=== PATIENT | female | born 1940 | race Caucasian/White ===

== ENCOUNTER → 2017-03-21 | Outpatient (CLI) | payer MEDICARE ==
[~2017-03-21] MED LIST: ACYCLOVIR PO; ALEVE220 M1 PO; ASPIRIN81 M1 PO; AUGMENTIN PO; BACLOFEN10 MG PO; BACLOFEN20 M1; BACTRIM DS TABL1 TA2 PO; CALCIUM 600 W/D1 TA1 PO; CALTRATE 600+D1 EACH PO; CIPRO PO; DESYREL50 M1 PO; IBUPROFEN400 MG PO; KEFLEX PO; LORTAB 5/500 TA1 TA1 PO; MACULAR VITAMI0.5 MG PO; ROBITUSSIN ALL118 ML PO; SLEEPING PILL; TRAZODONE PO; ULTRAM PO; VERAMYST10 GM NS; [UNRECOGNIZED DRUG - REMARK]
--- NOTE | ~2017-03-21 | CR63 ---
[facility] A [facility] RADIOLOGY TEXT RESULTS PATIENT: CAROLINA BRODERICK [facility] #: [id number] AGE: [address]: Santo Chavez MD SEX: F ORDER DR: [id number] [place] [address] [id number] O MR#: [id number] Acc #: [id number] NAME: CAROLINA BRODERICK : 1940 SEX: F STUDY DATE/TIME: 03/21/2017 14:06 UNIT: [facility] ROOM: STUDY DESCRIPTION: CR Chest 2 View Attending Physician: Santo Chavez M.D. Referring Physician: Santo Chavez M.D. Ordering Physician: Santo Chavez M.D. Primary Care Physician: Kathrin Bashir A.P.R.N. MEDICAL IMAGING REPORT This report is preliminary unless electronic signature is present. EXAM PA and lateral chest DATE 03/21/17 COMPARISON 08/20/2012 HISTORY SUPPLIED Abnormal weight loss, 20 pounds in 1 year, current smoker FINDINGS PA and lateral views of the chest are obtained and compared to a prior portable film of 08/20/2012 and a PA and lateral chest of 06/16/2009. FINDINGS Cardiac size in the patient remains normal. The pulmonary vascular markings are normal. The patient has advanced emphysematous lung disease. No obvious pulmonary nodules or masses are identified. There is a fat pad present along the right heart border which although not well seen on the prior portable film is seen well on the patient's study of 2008. CONCLUSION COPD. No acute process identified. Dictated by... Paulino Mendoza M.D. [facility] A [facility] RADIOLOGY TEXT RESULTS PATIENT: CAROLINA BRODERICK LOCATION: [facility] : 42 UNIT #: [id number] AGE: [address]: Santo Chavez MD SEX: F ORDER DR: THIS IS AN ELECTRONICALLY VERIFIED REPORT Paulino Mendoza M.D. at 03/22/2017 2:58 PM HUNTER/rajesh TD: 03/21/2017 22:50 JOB #: [id number] MEDICAL IMAGING REPORT Page 1 of 1
== END | disposition home or self-care (01) ==
LOC: SRAD 13:55
DX: R63.4 Abnormal weight loss (principal); J44.9 Chronic obstructive pulmonary disease, unspecified; F17.200 Nicotine dependence, unspecified, uncomplicated
CPT/HCPCS: 71020

== ENCOUNTER → 2017-05-02 | Day surgery (SDC) | payer MEDICARE ==
--- NOTE | ~2017-05-02 | OR ---
Unit #: [id number] #: [id number] Patient: CAROLINA BRODERICK [id number] [address] [address] [id number] O MR#: [id number] NAME: CAROLINA BRODERICK ROOM: Date of Procedure: 05/02/2017 Admission Date: 05/02/2017 Surgeon: Guanaco Kumar M.D. : 1940 Attending Physician: Guanaco Kumar M.D. Referring Physician: Guanaco Kumar M.D. Primary Care Physician: Kathrin Bashir A.P.R.N. OPERATIVE REPORT PROCEDURE PERFORMED Colonoscopy with snare polypectomy and hemoclip application on polypectomy site. INDICATIONS FOR PROCEDURE A 77-year-old female, Hemoccult positive stool, undergoing emergency colonoscopy. MEDICATIONS Monitored anesthesia. POSTOPERATIVE FINDINGS 1. Multiple polyps seen in ascending, more than a centimeter snared and sent for histopathology. Hemoclips placed on the right polypectomy site. 2. One in transverse and four in rectosigmoid area were all snared and sent for histopathology. The prep was good. PLAN Repeat colonoscopy in 3 years. DESCRIPTION OF PROCEDURE The patient was explained of the procedure, risks, and benefits along with the risks and benefits of anesthesia. She was brought to the endoscopy room. Propofol anesthesia was given. Rectal exam was done, which was normal. Colonoscope was lubricated, passed up the rectum, advanced under direct vision all the way to the cecum. Cecum was identified by ileocecal valve and appendiceal orifice. Multiple polyps were seen and sent for histopathology. I retroflexed the rectum, small hemorrhoids seen. Scope was gently pulled out. She tolerated it well. Dictated by... Radha Lewis/neil TD: 05/03/2017 04:41 JOB #: [id number] CC: Guanaco Kumar M.D. Unit #: [id number] #: [id number] Patient: CAROLINA BRODERICK OPERATIVE REPORT Page 1 of 1 X Guanaco Kumar MD PROCEDURE OPERATIVE NOTE
== END | disposition home or self-care (01) ==
LOC: COPS 06:27
DX: D12.3 Benign neoplasm of transverse colon (principal); D12.2 Benign neoplasm of ascending colon; D12.5 Benign neoplasm of sigmoid colon; K64.9 Unspecified hemorrhoids; R63.4 Abnormal weight loss; F17.200 Nicotine dependence, unspecified, uncomplicated; Z79.899 Other long term (current) drug therapy; Z85.3 Personal history of malignant neoplasm of breast; Z98.890 Other specified postprocedural states; Z88.5 Allergy status to narcotic agent
CPT/HCPCS: 88305